=== PATIENT | male | born 1945 | race Caucasian/White ===

== ENCOUNTER → 2018-02-22 | Outpatient (CLI) | payer MEDICARE, OTHER | END | disposition home or self-care (01) | LOC: CVU 14:40 | PROVIDERS: ATTEND Internal Medicine Cardiovascular Disease | DX: I70.203 Unspecified atherosclerosis of native arteries of extremities, bilateral legs (principal); E11.41 Type 2 diabetes mellitus with diabetic mononeuropathy; E73.9 Lactose intolerance, unspecified; E78.5 Hyperlipidemia, unspecified | CPT/HCPCS: 93922; 93925 ==